=== PATIENT | female | born 1965 | race Caucasian/White ===

== ENCOUNTER 2019-05-27 12:35 | Outpatient (CLI) | payer OTHER, SELFPAY ==
--- NOTE | ~2019-05-27 | MM_ITS ---
EXAMINATION: MM scrn ricky implant BI w carlos HISTORY: Screening mammogram TECHNIQUE: Craniocaudal and mediolateral oblique 3-D tomosynthesis images with implant displacement a nd synthetic 2-D images were generated. Craniocaudal and mediolateral oblique views of the breasts wi thout implant displacement were obtained using full field digital mammography. CAD analysis was submi tted and interpreted. COMPARISON: 05/06/2017, 05/24/2014, 07/07/2009 BREAST PARENCHYMAL COMPOSITION: The breasts are heterogeneously dense, which may obscure small masses . FINDINGS: An intramammary lymph node is noted in the right breast. There is no evidence of suspicious mass, calcification, or architectural distortion to suggest malignancy in either breast. There has b een no suspicious interval change. IMPRESSION: 1. No mammographic evidence of malignancy. 2. Recommend routine screening mammography in one year. BI-RADS Category 2: Benign finding(s). Reviewed, dictated and finalized at location A.
== END 2019-05-27 12:36 | disposition home or self-care (01) ==
PROVIDERS: PCP Family Medicine; Visit Provider Student in an Organized Health Care Education/Training Program
DX: Z12.31 Encounter for screening mammogram for malignant neoplasm of breast (principal)
CPT/HCPCS: 77063; 77067

== ENCOUNTER 2019-08-04 16:44 | Outpatient (CLI) | payer OTHER, SELFPAY ==
--- NOTE | ~2019-08-04 | XR_ITS ---
EXAMINATION: XR tibia fibula RT 2V EXAM DATE: 08/04/2019 17:30 INDICATION: No known recent injury provided at this time. Pain of the right tibia/fibula. TECHNIQUE: Right tibia/fibula frontal and lateral projections obtained and reviewed. There is no mundo or study for comparison. FINDINGS: Right tibial and fibular shafts unremarkable. There are no acute fractures or dislocations identified. There is no subcutaneous gas. The soft tissue is unremarkable. There are no radiopaq ue foreign bodies. IMPRESSION: 1. Unremarkable right tibia/fibula exam. Reviewed, dictated and finalized at location A.
--- NOTE | ~2019-08-04 | XR_ITS ---
EXAMINATION: XR knee RT min 4V EXAM DATE: 08/04/2019 17:29 INDICATION: No known recent injury provided at this time. Pain of the right knee. TECHNIQUE: Right knee lateral, frontal AP, frontal PA tunnel, sunrise projections. Comparison is made to prior examination from 06/19/2017. Correlation was made with contralateral knee same date. FINDINGS: No evidence osteochondral defect or joint body in the right knee joint. There is minimal patellofemoral compartment primary osteoarthritis. No joint effusion. There are no acute fractures o r dislocations identified. There is no subcutaneous gas. The soft tissue is unremarkable. There a re no radiopaque foreign bodies. IMPRESSION: Minimal right patellofemoral compartment osteoarthritis. Reviewed, dictated and finalized at location A.
--- NOTE | ~2019-08-04 | XR_ITS ---
EXAMINATION: XR knee LT min 4V EXAM DATE: 08/04/2019 17:29 INDICATION: Left knee pain, no known recent injury. TECHNIQUE: Left knee lateral, frontal AP, frontal PA tunnel, sunrise projections. There is no prior study for comparison. FINDINGS: No evidence osteochondral defect or joint body in the left knee joint. Joint spaces are uniform, no bony productive change or effusion. There are no acute fractures or dislocations identifi ed. There is no subcutaneous gas. The soft tissue is unremarkable. There are no radiopaque foreig n bodies. IMPRESSION: 1. Unremarkable left knee exam. Reviewed, dictated and finalized at location A.
== END 2019-08-04 16:45 | disposition home or self-care (01) ==
PROVIDERS: PCP Family Medicine; Visit Provider Nurse Practitioner Family
DX: M25.562 Pain in left knee (principal); M25.561 Pain in right knee; M17.11 Unilateral primary osteoarthritis, right knee
CPT/HCPCS: 73564; 73590

== ENCOUNTER 2022-03-15 02:39 | Emergency (ER) | payer OTHER, SELFPAY ==
--- NOTE | ~2022-03-15 | XR_ITS ---
Left index finger Technique: PA, oblique, and lateral views were obtained. Clinical History: Pain Findings: No acute fracture or dislocation is seen. Osseous alignment is anatomic. Joint spaces are p reserved. Soft tissues are unremarkable. Impression: Unremarkable exam. Reviewed, dictated and finalized at location M. EXOLOGIST Impression: Unremarkable exam.
[2022-03-15 02:41] VITALS: BP 142/90; PULSE 88; RESP 18; TEMP 36.1; O2SAT 96
[2022-03-15 03:16] VITALS: O2SAT 97
[2022-03-15 03:29] VITALS: BP 131/75; PULSE 74; RESP 16; O2SAT 97
--- NOTE | 2022-03-15 04:25 | ED.UPPEXIN ---
HPI - Extremity Injury (Upper) General Chief Complaint: Extremity Injury, Upper Stated Complaint: finger pain Time Seen by Provider: 03/15/22 02:59 History of Present Illness HPI narrative: Patient is a 57-year-old female who presents ER with left second digit pain. 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 She has been using ice warmth without improvement. No numbness or tingling. Does not believe that she smashed it. No redness/fever. Related Data Home Medications Medication Instructions Recorded Confirmed No Home Medications 12/28/18 12/28/18 Allergies Allergy/AdvReac Type Severity Reaction Status Date / Time No Known Allergies Allergy Verified 12/28/18 01:37 AUTOMATION TECH Review of Systems Musculoskeletal: Musculoskeletal: Denies arthralgias and Denies joint swelling Comments: Left second digit pain Integumentary/Breasts: Skin/Breast: Denies erythema and Denies rash Neurologic: Denies focal weakness and Denies numbness PMFSH Past Medical History Medical History (Updated 03/15/22 @ 04:26 by Meir Jenkins MD) Anxiety Depression GERD (gastroesophageal reflux disease) Herpes Insomnia Seizures UTI (urinary tract infection) Family History Family History Mother Hypertension Other Family history of malignant neoplasm of breast Social History Social History Smoking status: Never smoker Alcohol intake: current Substance use: never Gender identity (if verbalized by the patient): Female Exam Narrative: GENERAL: Well-appearing, well-nourished, and in no acute distress. HEAD: Normocephalic, atraumatic. EXTREMITIES: Normal range of motion. No edema. Mild edema over the proximal phalanx of the left second digit. Mild tenderness over the dorsal aspect of the finger with flexion. No evidence of cellulitis. No tenderness over the flexor tendon sheath. SKIN: Warm, dry, no rash. NEURO: Alert and oriented x3. PSYCH: Normal mood and affect. Course Course Emergency Course: Patient informed of results. Discharge home. Finger splinted. Exam not consistent with cellulitis/fracture/flexor tenosynovitis. Vital Signs Vital signs: Vital Signs Temperature 97.0 F L 03/15/22 02:41 Pulse Rate 88 03/15/22 02:41 Respiratory Rate 18 03/15/22 02:41 Blood Pressure 142/90 H 03/15/22 02:41 Pulse Oximetry 96 03/15/22 02:41 Oxygen Delivery Room Air 03/15/22 02:41 Temperature 97.0 F L 03/15/22 02:41 Pulse Rate 74 03/15/22 03:29 Respiratory Rate 16 03/15/22 03:29 Blood Pressure 131/75 03/15/22 03:29 Pulse Oximetry 97 03/15/22 03:29 Oxygen Delivery Room Air 03/15/22 02:41 Procedures Orthopedic Splinting/Casting Injury #1: Splinting/Casting Date: 03/15/22 Splinting/Casting Time: 04:25 Side: left Upper Extremity Immobilizer: finger (other) (2nd) Pre-Formed: metal foam finger splint Pre-Procedure Neuro Vascular Exam: normal Post-Procedure Neuro Vascular Exam: normal MDM - Extremity Injury (Upper) Imaging Data My impression: X-ray left second digit: No fracture. Discharge Plan Discharge Clinical Impression: Finger sprain Patient Disposition: Home, Self-Care Condition: Stable Instructions: Finger Sprain (ED) Additional Instructions: Return the ER if your finger is red and hot, you have fever over 100.4 ?F, you have additional concerns. Take ibuprofen as needed for pain. Wear your splint as needed for the next week. Prescriptions: No Action No Home Medications Follow-up/Referrals: Nir Gayle MD [Primary Care Provider] - 1 Week
[2022-03-15 04:38] VITALS: BP 125/80; PULSE 52; RESP 16; TEMP 36.3; O2SAT 100
== END 2022-03-15 04:39 | disposition home or self-care (01) ==
PROVIDERS: Emergency Provider Emergency Medicine; PCP Family Medicine
DX: S63.611A Unspecified sprain of left index finger, initial encounter (principal); K21.9 Gastro-esophageal reflux disease without esophagitis; Z87.440 Personal history of urinary (tract) infections; X58.XXXA Exposure to other specified factors, initial encounter
CPT/HCPCS: 29130; 73140; 99283

== ENCOUNTER 2023-03-07 16:43 | Outpatient (CLI) | payer OTHER, SELFPAY ==
--- NOTE | ~2023-03-07 | MM_ITS ---
EXAMINATION: MM screening [facility] BI w carlos HISTORY: Screening mammogram TECHNIQUE: Craniocaudal and mediolateral oblique 3-D tomosynthesis images were obtained and synthetic 2-D images were generated. CAD analysis was submitted and interpreted. COMPARISON: 05/27/2019, 05/06/2017, 05/24/2014, 07/07/2009 BREAST PARENCHYMAL COMPOSITION: There are scattered areas of fibroglandular density. FINDINGS: An intramammary lymph node is again noted in the right breast. No suspicious mass, calcific ation, or architectural distortion are identified in either breast to suggest malignancy. There has b een no suspicious interval change. IMPRESSION: 1. No mammographic evidence of malignancy. 2. Recommend routine screening mammography in one year. BI-RADS Category 2: Benign finding(s). Reviewed, dictated and finalized at location A. [employer]
== END 2023-03-07 16:44 | disposition home or self-care (01) ==
PROVIDERS: PCP Family Medicine; Visit Provider Obstetrics & Gynecology
DX: Z12.31 Encounter for screening mammogram for malignant neoplasm of breast (principal)
CPT/HCPCS: 77063; 77067

== ENCOUNTER 2023-09-18 00:47 | Emergency (ER) | payer OTHER, SELFPAY ==
--- NOTE | ~2023-09-18 | XR_ITS ---
EXAMINATION: XR knee RT min 4V DATE: 09/18/2023 02:15 INDICATION: Right knee pain post injury TECHNIQUE: Anteroposterior, 2 oblique and crosstable lateral views of the right knee were obtained COMPARISON: None. FINDINGS: Alignment is normal. No fracture. Joint spaces appear normal on nonweightbearing imaging. No joint e ffusion/layering lipohemarthrosis. Soft tissues are unremarkable. IMPRESSION: 1. Negative right knee radiographs. Reviewed, dictated and finalized at location A.
--- NOTE | ~2023-09-18 | XR_ITS ---
EXAMINATION: XR shoulder RT min 2V DATE: 09/18/2023 02:15 INDICATION: Right shoulder pain post injury TECHNIQUE: AP internally and externally rotated, AP oblique externally rotated and transscapular Y vi ews of the right shoulder were obtained. COMPARISON: None FINDINGS: Normal alignment. No fracture. Glenohumeral joint is normal. Acromioclavicular joint is normal. The prior globular calcifications along the greater tuberosity likely related to rotator cuff calcific te ndinitis have nearly entirely resolved. Soft tissues are otherwise unremarkable. Visualized portion o f lungs are clear. IMPRESSION: No acute osseous abnormality. Reviewed, dictated and finalized at location A.
[2023-09-18 00:48] VITALS: BP 155/80; PULSE 90; RESP 16; TEMP 36.4; O2SAT 98
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
[2023-09-18] MEDS: methocarbamoL 750 MG TABLET PO (02:56)
[2023-09-18] MEDS: ACETAMINOPHEN 500 MG TABLET 1000 MG PO (02:56)
[2023-09-18 03:08] VITALS: BP 140/92; PULSE 94; RESP 16; O2SAT 100
== END 2023-09-18 03:09 | disposition home or self-care (01) ==
PROVIDERS: Emergency Provider Emergency Medicine; PCP Family Medicine
DX: M25.511 Pain in right shoulder (principal); G89.29 Other chronic pain; K21.9 Gastro-esophageal reflux disease without esophagitis; Z87.440 Personal history of urinary (tract) infections
CPT/HCPCS: 73030; 73564; 99284; A9270

== ENCOUNTER 2023-10-07 10:42 | Outpatient (CLI) | payer OTHER, SELFPAY ==
--- NOTE | ~2023-10-07 | DEXA_ITS ---
Bone Density Report Name: HUSAM PAN Age: 58 Sex: Female Ethnicity: White Date of : 1965 Indication: postmenopausal; screening for osteoporosis; parental hip fracture; inflammatory bowel disease; Referring Provider: PARMJIT, ANGEL LUIS Jack Study: Bone densitometry was performed. Exam Date: October 07, 2023 Accession number: [id number] Bone Density: Region BMD T-score Z-score Classification AP Spine(L1-L4) 0.997 -0.5 0.9 Normal Femoral Neck (Left) 0.635 -1.9 -0.7 Osteopenia Total Hip (Left) 0.830 -0.9 0.0 Normal Femoral Neck (Right) 0.638 -1.9 -0.6 Osteopenia Total Hip (Right) 0.832 -0.9 0.0 Normal Total Hip Mean 0.831 -0.9 0.0 Normal World Health Organization criteria for BMD impression classify patients as: Normal (T-score at or above -1.0), Osteopenia (T-score between -1.0 and -2.5), or Osteoporosis (T-score at or below -2.5). 10-year Fracture Risk(1): Major Osteoporotic Fracture 16% Hip Fracture 1.1% Reported Risk Factors: [place] (), Neck BMD=0.635, BMI=21.5, parental fracture (1) FRAX(R) Version 3.08. Fracture probability calculated for an untreated patient. Fracture probability may be lower if the patient has received treatment. Previous Exams: Region Exam Age BMD T-score BMD Change BMD Change Date g/cm2 vs Baseline vs Previous AP Spine (L1-L4) 10/07/2023 58 0.997 -0.5 -0.007 (-0.7%) -0.007 (-0.7%) 10/07/2023 58 1.004 -0.4 *Denotes significance at 95% confidence level, LSC for AP Spine = 0.022 g/cm2 Clinical Information Provided by Patient: Parent has had a hip fracture Has used the following medications: Vitamin D Has the following medical conditions: Inflammatory bowel diseases Patient maximum height was 66.0 Drinks caffeinated beverages Onset of menses at age 13 Number of children 1 Impression: The patient has low bone mass, based on the Left Femoral Neck T-score. The patient has an estimated ten-year risk of hip fracture of 1.1% and an estimated ten-year risk of major fracture of 16%, based on the WHO FRAX algorithm. The patient has risk factors, including: parental hip fracture. No significant bone loss was observed. Discussion: BONE DENSITY IS LOW AT ONE OR MORE SKELETAL SITES. This patient's lowest T-score is low at one or more skeletal sites. It meets the World Health Organization's (WHO) criteria for ?low bone mass? (T-score between -1.0 and -2.5). The patient's 10-year risk of fracture as calculated by FRAX is less than the threshold where pharmacological ther
== END 2023-10-07 10:43 | disposition home or self-care (01) ==
PROVIDERS: PCP Family Medicine; Visit Provider Registered Nurse
DX: M85.89 Other specified disorders of bone density and structure, multiple sites (principal); N95.0 Postmenopausal bleeding; Z13.820 Encounter for screening for osteoporosis
CPT/HCPCS: 77080

== ENCOUNTER 2023-11-18 11:54 | Outpatient (CLI) | payer OTHER, SELFPAY ==
--- NOTE | 2023-11-18 16:05 | P.PCNPFT_ITS ---
PFT Procedure Performed PFT Procedure Performed Spirometry with Pre/Post Bronchodilator Plethysmography (Lung Vol) Diffusing Cap (DLCO) Flow Vol Loop PFT Interpretation This is a pulmonary function test with pre and post-bronchodilator spirometry, plethysmography and diffusing capacity. The test was performed and results interpreted in accordance with the 2019 and 2005 ATS/ERS Task Force guidelines respectively using the Global Lung Function Initiative-2012 reference equations. Patient demonstrated good effort and cooperation. Reproducibility criteria were met. The quality of the pre bronchodilator spirometry maneuver was Grade B and post bronchodilator spirometry maneuver was Grade B. Of note, the patient had difficulty with exhalation requirements of the flow volume loops. Findings: Spirometry: The contour the inspiratory and expiratory flow tracing are normal. The pre bronchodilator FVC is 3.54 L, 103% predicted. The pre bronchodilator FEV1 is 2.99 L, 111% predicted. The pre bronchodilator FEV1: FVC ratio was 84%. The post bronchodilator FVC is 3.19 L, representing a 10% increase. The post bronchodilator FEV1 is 2.38 L, representing a 5% decrease. The post bronchodilator FEV1: FVC ratio is 89%. Plethysmography: The total lung capacity is 4.64 L, 86% predicted. The func tional residual capacity is 2.59 L, 85% predicted. The residual volume is 1.10 L, 53% predicted. Diffusing capacity: The diffusing capacity unadjusted for hemoglobin and carboxyhemoglobin is 19.1, 85% predicted. The diffusing capacity adjusted for alveolar volume is 4.00, 92% predicted. Impression: The spirometry is normal without evidence of an obstructive abnormality. There is no significant improvement after inhaling a single dose of albuterol. The total lung capacity and functional residual capacity are normal with a decreased residual volume. This is an abnormal but nonspecific lung volume pattern. The diffusing capacity is normal. There are no prior studies for comparison
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
== END 2023-11-18 11:55 | disposition home or self-care (01) ==
LOC: ANHPFT 11:57
PROVIDERS: PCP Family Medicine; Visit Provider Physician Assistant
DX: J45.909 Unspecified asthma, uncomplicated (principal)
CPT/HCPCS: 94060; 94726; 94729

== ENCOUNTER 2023-12-18 16:12 | Outpatient (CLI) | payer OTHER, SELFPAY ==
--- NOTE | ~2023-12-18 | CT_ITS ---
CT diagnostic chest wo con Ordering provider: Mandi Douglas PA-C History: 58 years Female with . R05.9 - Cough, unspecified . Comparison: None. Technique: CT chest without IV contrast. Radiation reduction technique utilized.The dose-length product was 128.42 mGy-cm. FINDINGS: Bilateral breast implants. VISUALIZED THORACIC INLET: Normal. MEDIASTINUM: Aorta/coronary arteries: Mild atheromatous disease. Heart/other: The heart is not enlarged. Lymph nodes: No mediastinal or hilar adenopathy. LUNGS: No pulmonary nodules or masses. No infiltrates or effusions. No pneumothorax. Dependent atelec tatic changes in the right lung base posteriorly. Follow-up advised. VISUALIZED UPPER ABDOMEN: Multiple hepatic Small hypodensities adjacent to each other most likely sma ll cysts. Ultrasound confirmation advised. Otherwise, the visualized upper abdomen is normal. MUSCULOSKELETAL: Soft tissues: The superficial soft tissues are normal. Bones: Age appropriate degenerative changes of the spine. IMPRESSION: 1. No definite acute cardiopulmonary pathology. Minimal dependent atelectatic changes in the right l nikita base. Early infiltration cannot be excluded. Follow-up advised. 2. Multiple small hepatic hypodensities which are adjacent to each other most likely cysts. Ultrasou nd evaluation advised. Reviewed, dictated and finalized at location A. IMPRESSION: 1. No definite acute cardiopulmonary pathology. Minimal dependent atelectatic changes in the right lung base. Early infiltration cannot be excluded. Follow-u p advised. 2. Multiple small hepatic hypodensities which are adjacent to each other most likely cysts. Ultrasound evaluation advised.
== END 2023-12-18 16:13 | disposition home or self-care (01) ==
LOC: ANHIMG 16:14
PROVIDERS: PCP Family Medicine; Visit Provider Physician Assistant
DX: J45.909 Unspecified asthma, uncomplicated (principal)
CPT/HCPCS: 71250

== ENCOUNTER 2024-02-18 13:25 | Outpatient (CLI) | payer OTHER, SELFPAY ==
--- NOTE | 2024-02-18 14:00 | ECHO_ITS ---
Patient Info Name: Mikey Bass Age: 59 years : 1965 Gender: Female Ht: 66 in Wt: 142 lbs BSA: 1.74 m2 HR: 66 bpm BP: 140 / 86 mmHg Technical Quality: Fair Exam Date: 02/18/2024 1:41 PM Exam Location: Echo Lab Patient Status: Outpatient Admit Date: 02/18/2024 Staff Ordering Physician: Mandi Douglas PA-C Pediatric Social Worker: Yulissa Ly RDCS Attending Provider: Mandi Douglas PA-C Exam Type: CA echo doppler color flow Study Info Indications - COUGH Complete two-dimensional, color flow and Doppler transthoracic echocardiogram is performed. Summary 1. Complete two-dimensional, color flow and Doppler transthoracic echocardiogram is performed. 2. Left ventricular chamber dimension is normal. 3. Left ventricular systolic function is normal, estimated at 60-65%. 4. The left ventricular diastolic function is normal. 5. E/e' 6 is not elevated. 6. There is trace mitral valve regurgitation. Left Ventricle E/e' 6 is not elevated. Left ventricular chamber dimension is normal. Left ventricular systolic function is normal, estimated at 60-65%. The left ventricular diastolic function is normal. Right Ventricle Right ventricular systolic function is normal and with normal TAPSE 2.4 cm. Right ventricular chamber dimension is normal. Left Atria Left atrial chamber dimension is normal. Right Atria Right atrial chamber dimension is normal. Aortic Valve The aortic valve is trileaflet. There is no aortic valve stenosis. There is no aortic valve regurgitation. Pulmonic Valve There is no pulmonic regurgitation. Mitral Valve There is no mitral valve stenosis. There is trace mitral valve regurgitation. Tricuspid Valve There is no tricuspid valve regurgitation. Pericardium/Pleural There is no pericardial effusion. Inferior Vena Cava Normal inferior vena cava with >50% collapse upon inspiration consistent with normal right atrial pressure, 5 mmHg. Aorta The aortic root size at the sinus of Valsalva is normal. Left Ventricular Outflow Tract Name Value Normal LVOT 2D LVOT Diameter 1.9 cm LVOT Doppler LVOT Peak Gradient 4 mmHg LVOT Mean Gradient 2 mmHg LVOT VTI 23 cm LVOT VTI/AV VTI Ratio 0.9 LVOT Stroke Volume 61 ml LVOT CO 3.4 l/min LVOT CI 2.0 l/min/m2 Pulmonic Valve Name Value Normal RVOT Doppler RVOT Peak Gradient 2 mmHg PV Doppler PV Peak Gradient 2 mmHg Mitral Valve Name Value Normal MV Doppler MV Peak Gradient 2 mmHg MV Mean Gradient 1 mmHg MV Decel [place] 420 cm/s2 MV PHT 44 ms MV Area (PHT) 5.0 cm2 4.0-5.0 MV Area (Cont Eq VTI) 2.7 cm2 MV Diastolic Function MV E Peak Velocity 63 cm/s MV A Peak Velocity 59 cm/s MV E/A 1.1 MV Decel Time 151 ms MV Annular TDI MV E/e' (Septal) 7.0 <=8.0 MV E/e' (Lateral) 5.7 <=8.0 MV E/e' (Average) 6.4 Tricuspid Valve Name Value Normal Estimated PAP/RSVP RA Pressure 5 mmHg <=5 Aorta Name Value Normal Ascending Aorta Ao Root Diameter (MM) 2.6 cm Ao Root Diam Index (MM) 1.5 cm/m2 Aortic Valve Name Value Normal AV Doppler AV Peak Velocity 125 cm/s AV Peak Gradient 6 mmHg AV Mean Gradient 4 mmHg AV VTI 26 cm AV Area (Cont Eq VTI) 2.3 cm2 >=3.0 AV Area (Cont Eq Niranjan) 2.6 cm2 AV Regurgitation 2D LVOT Area 2.7 cm2 Ventricles Name Value Normal LV Dimensions 2D/MM IVS Diastolic Thickness (2D) 1.1 cm 0.6-1.0 LVID Diastole (2D) 4.0 cm 3.8-5.2 LVIW Diastolic Thickness (2D) 1.0 cm 0.6-0.9 LVID Systole (2D) 2.6 cm 2.2-3.5 LVOT Diameter 1.9 cm LV Mass (2D Cubed) 134.90 g 67.00-162.00 LV Mass Index (2D Cubed) 78 g/m2 43-95 Relative Wall Thickness (2D) 0.49 LV Fractional Shortening/Ejection Fraction 2D/MM LV Fractional Shortening (2D) 36 % 27-45 LV EF (2D Teicholz) 66 % 54-74 LV Diastolic Volume (4C MOD) 60 ml LV EF (4C MOD) 50 % LV Diastolic Volume (2C MOD) 57 ml LV EF (2C MOD) 62 % LV Diastolic Volume (BP MOD) 60 ml 46-106 LV Diastolic Volume Index (BP MOD) 34 ml/m2 29-61 LV Systolic Volume (BP MOD) 26 ml 14-42 LV Systolic Volume Index (BP MOD) 15 ml/m2 8-24 LV EF (BP MOD) 56 % 54-74 LV Diastolic Length (4C) 7.2 cm LV Systolic Length (4C) 6.4 cm LV Stroke Volume (4C MOD) 30 ml Atria Name Value Normal LA Dimensions LA Dimension (MM) 3.0 cm 2.7-3.8 LA Volume (4C A-L) 31 ml LA Volume (BP A-L) 40 ml RA Dimensions RA Area (4C) 11.2 cm2 <=18.0 Report Signatures
[2024-02-18 15:01] LABS: Alanine Aminotransferase 13 U/L (6-35); Albumin Level 4.5 g/dL (3.5-5.1); Alkaline Phosphatase 82 U/L (38-126); Anion Gap 1 mmol/L (4-12); Aspartate Amino Transferase 26 U/L (14-36); Bilirubin,Total 1.6 mg/dL (0.2-1.3); Blood Urea Nitrogen 12 mg/dL (7-17); Calcium 9.4 mg/dL (8.4-10.2); Carbon Dioxide 33 mmol/L (22-30); Chloride 104 mmol/L (98-107); Cholesterol 262 mg/dL (0-200); Estimated Glomerular Filt Rate > 60; Glucose 105 mg/dL (65-110); HDL Direct 58 mg/dL; Potassium 4.3 mmol/L (3.4-5.0); Sodium 138 mmol/L (137-145); Triglycerides 202 mg/dL (<150)
[2024-02-18 15:11] LABS: LDL Cholesterol Direct 143 mg/dL
[2024-02-18 15:18] LABS: Hemoglobin A1C 5.7 % (<5.7)
== END 2024-02-18 13:26 | disposition home or self-care (01) ==
PROVIDERS: PCP Family Medicine; Visit Provider Physician Assistant
DX: R06.09 Other forms of dyspnea (principal); R05.9 Cough, unspecified; R73.01 Impaired fasting glucose; Z11.59 Encounter for screening for other viral diseases; E78.5 Hyperlipidemia, unspecified
CPT/HCPCS: 36415; 80053; 80061; 83036; 93306

== ENCOUNTER 2024-04-17 15:30 | Outpatient (CLI) | payer OTHER, SELFPAY ==
--- NOTE | ~2024-04-17 | XR_ITS ---
EXAMINATION: XR chest 2V 04/17/2024 15:47 INDICATION: Atelectasis. Cough. PROCEDURE: 2 view chest COMPARISON: CT dated 12/18/2023 FINDINGS: The lungs are clear. The cardiomediastinal silhouette is within normal limits. There are no pleural effusions. There is no pneumothorax suspected. IMPRESSION: 1: NO ACUTE CARDIOPULMONARY DISEASE. Reviewed, dictated and finalized at location L. WORK ASSEMBLER
--- OUTSIDE RECORDS SUMMARY | 2024-04-17 15:34 | XMS_ITS | Encounter Summary ---
Author Organization [facility] Address [facility] [place] [address] Care Team Providers Care Fire Battalion Chief Name Role Phone Nir Gayle MD Primary Care Provider [phone] Osmany Montes NP Primary Care Provide r Renny Urbina MD Primary Care Provider [phone] Nir Gayle MD Primary Care Provider [phone] Encounter Details Date Type Department Care Team (Late st Contact Info) Description 07/20/2021 Prep for Procedure [facility] [address] [place] [address] Abdulkadir Damon, DPM [address] [place] [id number] Social History Tobacco Use Types Packs/Day Years Used Date Smoking Tobacco: Never Smokeless Tobacco: Never Alcohol Use Standard Drinks/Week Comments Not Currently 0 (1 standard drink = 0.6 oz pur e alcohol) AUDIT-C Answer Date Recorded Frequency of Alcohol Consumption 2-4 times a sat06/25/2018 Average Number of Drinks 1 or 2 019 Frequency of Binge Drinking Never 02/2018 PHQ-2 Answer Date Recorded PHQ-2 Score 2 01/31/2019 Education Answer Date Recorded What is the highest level of school you have completed or the highest degree you have received? Bachelor's degree (e.g., BA, AB, BS) 05/01/2018 Comments No Sex and Gender Information Value Date Recorded Sex Assigned at Female 05/01/2018 7:16 AM SECURITY SHIFT SUPERVISOR Legal Sex Female 4:36 PM CDT Gender Identity Female 05/01/2018 7:16 AM SECURITY SHIFT SUPERVISOR Sexual Orientation Straight 05/01/2018 7: 16 AM SECURITY SHIFT SUPERVISOR COVID-19 Exposure Response Date Recorded In the last 10 days, have yo u been in contact with someone who was confirmed or suspected to have Coronavirus/COVID-19? No / Unsure 07/22/2021 11:50 AM CDT documented as of this encounter Plan of Treatment Not on file documented as of this encounter Results * PRE-SURGICAL/PRE-PROCEDURE CORONAVIRUS (COVID 19) (07/22/2021 11:53 AM CDT) SPECIMEN SOURCE NASAL 11:51 AM CDT [facility] CORONAVIRUS SARS COV 2 PCR (RESP) NEGATIVE NEGATIVE 07/23/2021 10:39 AM CDT [facility] Comment: THE SARS-CoV-2 TEST HAS BEEN AUTHORIZED BY THE FDA UNDER AN EUA FOR USE BY AUTHORIZED LABORATORIES. PERFORMED BY NUCLEIC ACID AMPLIFICATION PCR FIRST TEST NO 07/22/2021 11:51 AM CDT [facility] EMPLOYED IN HEALTHCARE NO 07/22/2021 11:51 AM CDT [facility] SYMPTOMATIC DEFINED BY CDC NO 07/22/2021 11:51 AM CDT [facility] HOSPITALIZATION STATUS NO 07/22/2021 11:51 AM CDT [facility] PATIENT IN ICU NO 07/22/2021 11:51 AM CDT [facility] RESIDENT OF [facility] NO 07/22/2021 11:51 AM CDT [facility] NASAL STRUCTURE / Unknown 07/22/2021 11:53 AM CDT Abdulkadir Damon DPM MICROBIOLOGY - GENERAL ORDERABLE S Final Result [facility] (H) [facility] [address] [place] [address], [place] [phone] [facility] (D) [facility] [address] [place] [address], documented in this encounter Visit Diagnoses Diagnosis Pre-op testing- Primary Preoperative examination, unspecified documented in this encounter Additional Health Concerns Infection Onset Date Last Indicated Resolved Time COVID-19 Rule Out 07/22/2021 07/22/2021 07/23/2021 10:40 AM CDT COVID-19 Rule Out 12/21/2021 12/21/2021 12/21/2021 10:21 AM CDT COVID-19 Confirmed 12/21/2021 12/21/2021 12:32 AM SECURITY SHIFT SUPERVISOR documented as of this encounter Care Teams Fire Battalion Chief Relationship Specialty Start Date End Date Nir Gayle MD [address] [place] [address] PCP - General FAMILY PRACTICE 06/19/21 03/18/23 Osmany Montes NP [address] [place] [address] PCP - General NURSE PRACTITIONER ADULT HEALTH 03/19/23 09/12/23 [place] [address] [place] [address] PCP - General INTERNAL MEDICINE 09/13/23 10/29/23 Nir Gayle MD [address] [place] [address] PCP - General FAMILY PRACTICE 10/30/23 documented as of this encounter
--- OUTSIDE RECORDS SUMMARY | 2024-04-17 15:35 | XMS_ITS | Referral Summary ---
Author Organization [facility] Address [address] [facility] [place] [address] Care Team Providers Care Meat Molder Name Role Phone Nir Gayle MD Primary Care Provider Source Comments [facility],non-owned Affiliates and Associated Physician Practices is amultiple site organization consisting of ambulatory clinics and hospital sitesin [place], [place], [place] and [place]. This disclosure is being madepursuant to the Care Everywhere program and may not contain all information available regarding this patient. Last updated 17.[facility] Encounters Date Type Department Care Team Description 02/13/2024 Travel from Last 3 Months Allergies Active Allergy Reactions Criticality Noted Date Comments Dronabinol Diarrhea Low 05/01/2018 From intense inhalation Marijuana (Cannabis Sativa) Unknown,Diarrhea 05/01/2018 From intense inhalation From intense inhalation Paroxetine Unknown 03/24/2014 Sertraline Unknown 03/24/2014 SSRI reaction Medications * Be aware that medications may not be up to date on this document. Alwaysverify current medications with the patient. Medication Sig Dispensed Refills Start Date End Date Status ALPRAZolam (XANAX) 1 MG tablet Take 1 (one) tablet by mouth once daily as needed FOR ANXIETY 08/06/2019 Active vitamin D, ergocalciferol, (DRISDOL) 1.25 MG (56440 UT) capsule TAKE 1 CAPSULE BY MOUTH ONE TIME PER WEEK 07/21/2019 Active zolpidem CR (AMBIEN CR) 12.5 MG tablet Take 1 (one) tablet by mouth at bedtime 10/14/2020 Active nortriptyline (Pamelor) 25 MG capsule Take 1 (one) capsule by mouth 07/11/2023 Active ciprofloxacin (Cipro) 500 MG tablet Take 1 (one) tablet by mouth 2 times daily 06/26/2023 Active methocarbamol (Robaxin) 750 MG tablet Take 1 (one) tablet by mouth nightly as needed 09/18/2023 Active erythromycin (Romycin) 5 MG/GM ophthalmic ointment Apply thin ribbon to upper eyelid incisions once daily as needed. 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 Rosacea 05/24/2016 Uterine leiomyoma 02/01/2015 Herpes labialis 10/11/2014 Anxiety 12/24/2013 Depression 12/24/2013 Insomnia 12/24/2013 Social History Tobacco Use Types Packs/Day Years Used Date Smoking Tobacco: Never Smokeless Tobacco: Never Tobacco Cessation:Counseling Given: Not Answered Alcohol Use Standard Drinks/Week Comments Yes 0 (1 standard drink = 0.6 oz pur e alcohol) 1 per month Sex and Gender Information Value Date Recorded Sex Assigned at Not on file Gender Identity Not on file Sexual Orientation Not on file Last Filed Vital Signs Vital Sign Reading Time Taken Comments Blood Pressure 144/91 09/23/2023 9:55 AM CDT Pulse 54 09/23/2023 9:55 AM CDT Temperature 36.7 C (98 F) 09/23/2023 9:45 AM CDT Respiratory Rate 11 09/23/2023 9:55 AM CDT Oxygen Saturation 100% 09/23/2023 9:55 AM CDT Inhaled Oxygen Concentration - - Weight 60.6 kg (133 lb 9.6 oz) 09/23/2023 6:29 A M CDT Height 167.6 cm (5' 6 ) 09/23/2023 6:29 AM CDT Body Mass Index 21.56 09/23/2023 6:29 AM CDT Functional Status Functional Status Response Date of Assess ment Is person deaf or have serious hearing difficult y? No 01/06/2019 Is person blind or have serious difficulty seein g? No 01/06/2019 Does person have serious dif ficulty walking/climbing stairs? No 01/06/2019 Does person have difficulty dressing/bathing? No 01/06/2019 Does person have difficulty doing errands alone? No 01/06/2019 Cognitive Status Response Date of Assessm ent Does person have difficulty concentrating/remembering/making decisions? No 01/06/2019 Plan of Treatment Not on file Procedures Procedure Name Priority Date/Time Associated Diagnosis Comments LIPID PROFILE Routine 01/04/2019 5:35 AM OCEANOGRAPHY PROFESSOR from Last 3 Months or Most Recently Relevant to Health Maintenance Results * LIPID PROFILE (01/04/2019 5:35 AM OCEANOGRAPHY PROFESSOR) [facility] Cholesterol 173 <200 mg/dL 01/04/2019 6:20 AM [facility] Triglycerides 87 <150 mg/dL 01/04/2019 6:20 AM [facility] HDL Cholesterol 57 >40 mg/dL 9 6:20 AM [facility] Chol HDL Ratio 3.0 1.0 - 6.0 01/04/2019 6:20 AM [facility] LDL Calculated 99 65 - 130 mg/dL 01/04/2019 6:20 AM [facility] VLDL Calculated 17 10 - 40 mg/dL 01/04/2019 6:20 AM [facility] Blood BLOOD SPECIMEN / Unknown Lab Venipuncture / Unknown 01/04/2019 5:35 AM OCEANOGRAPHY PROFESSOR 01/04/2019 5:46 AM [facility] - 01/04/2019 6:20 AM [facility] Lipid Profile Comment: CHOLESTEROL LEVEL..................CLINICAL INTERPRETATION LESS THAN 200 MG/DL..............................DESIRABLE 200-239 MG/DL..............................BORDERLINE HIGH GREATER THAN 240 MG/DL................................HIGH LDL-CHOLESTEROL LEVEL..............CLINICAL INTERPRETATION LESS THAN 100 MG/DL................................OPTIMAL 100-129 MG/DL.................................NEAR OPTIMAL GREATER THAN 160 MG/DL...........................HIGH RISK HDL RISK LEVEL GREATER THEN 60 MG/DL............................DECREASED 40-60 MG/DL........................................AVERAGE LESS THAN 40 MG/DL...............................INCREASED TRIGLYCERIDE LEVEL..................CLINICAL INTERPRETATION LESS THAN 150 MG/DL...............................DESIRABLE 150-199 MG/DL...............................BORDERLINE HIGH 200-499 MG/DL..........................................HIGH GREATER THAN 500..................................VERY HIGH THE NATIONAL CHOLESTEROL EDUCATION PROGRAM HAS SET THE ABOVE GUIDELINES (REFERANCE VALUES) FOR CHOLESTEROL AND HDL. RISK ASSOCIATED WITH CHOLESTEROL/HDL RATIOS RISK....................MALE RATIO.............FEMALE RATIO 1/2 AVERAGE.................<3.4.......................<3.3 LOW RISK.................... 4.0 ...................... 3.8 AVERAGE..................... 5.0 ...................... 4.5 2X AVERAGE.................. 9.5 ...................... 7.0 3X AVERAGE...................>23........................>11 Victor Manuel Galan MD LAB - CHEMISTRY [facility] Organization Address City/State/[facility] Co de Phone Number [facility] [address] from Last 3 Months or Most Recently Relevant to Health Maintenance Advance Directives * Full Code (Latest Code Status on File) Date Activated Date Inactivated Comments 01/01/2019 8:43 PM 01/06/2019 2:09 PM Care Teams Meat Molder Relationship Specialty Start Date End Date Nir Gayle MD [address] [place] [address] PCP - General 08/19/19
--- OUTSIDE RECORDS SUMMARY | 2024-04-17 15:35 | XMS_ITS | Patient Health Summary ---
Author Organization [facility] Address [address] [facility] [address] Care Team Providers Care Quarry Supervisor Name Role Phone Nir Gayle MD Primary Care Provider Note from [facility],non-owned Affiliates and Associated Physician Practices is amultiple site organization consisting of ambulatory clinics and hospital sitesin [place], [place], [place] and [place]. This disclosure is being madepursuant to the Care Everywhere program and may not contain all information available regarding this patient. Last updated 17.[facility] Allergies * Dronabinol(Diarrhea) -Low Criticality * Marijuana (Cannabis Sativa)(Unknown,Diarrhea) * Paroxetine(Unknown) * Sertraline(Unknown) Medications * Be aware that medications may not be up to date on this document. Alwaysverify current medications with the patient. * ALPRAZolam (XANAX) 1 MG tablet(Started 08/06/2019) Take 1 (one) tablet by mouth once daily as needed FOR ANXIETY * vitamin D, ergocalciferol, (DRISDOL) 1.25 MG (36143 UT) capsule(Started 07/21/2019) TAKE 1 CAPSULE BY MOUTH ONE TIME PER WEEK * zolpidem CR (AMBIEN CR) 12.5 MG tablet(Started 10/14/2020) Take 1 (one) tablet by mouth at bedtime * nortriptyline (Pamelor) 25 MG capsule(Started 07/11/2023) Take 1 (one) capsule by mouth * ciprofloxacin (Cipro) 500 MG tablet(Started 06/26/2023) Take 1 (one) tablet by mouth 2 times daily * methocarbamol (Robaxin) 750 MG tablet(Started 09/18/2023) Take 1 (one) tablet by mouth nightly as needed * erythromycin (Romycin) 5 MG/GM ophthalmic ointment(Started 10/01/2023) Apply thin ribbon to upper eyelid incisions once daily as needed. 1 refill by 09/30/2024 Active Problems Problem Noted Date Diagnosed Date [...] Mass Index 21.56 09/23/2023 6:29 AM CDT Procedures * AK FIX LID PTOSIS,LEVATR RESEC,REFRIGERATOR ASSEMBLER(Performed 09/23/2023) Performed for Ptosis of both eyelids, Dermatochalasis of both upper eyelids * CHAVEZ AUTO VISUAL FIELD EXTENDED(Performed 08/30/2022) Performed for Brow ptosis, bilateral * XR SHOULDER RIGHT 2VW OR MORE(Performed 08/21/2019) Performed for Right shoulder pain, unspecified chronicity * HEMOGLOBIN A1C(Performed 01/04/2019) * LIPID PROFILE(Performed 01/04/2019) Results * CHAVEZ AUTO VISUAL FIELD EXTENDED (08/30/2022 9:46 AM CDT) Anatomical Region Laterality Modality Head External-Camera Photography Narrative 09/01/2022 8:14 AM CDT KINETIC Rojas visual field Reversible superior visual field deficit Right: 14 degrees to 26 degrees Left: 21 degrees to 26 degrees Ange King MD OPHTHALMOLOGY JOSHUA ED ORD W PACS * XR SHOULDER RIGHT 2VW OR MORE (08/21/2019 12:08 PM CDT) Anatomical Region Laterality Modality Upper Extremity Radiographic Poonam ging 08/21/2019 12:0 9 PM CDT Impressions 08/21/2019 1:09 PM CDT Impression: No evidence of fracture or arthritis. Report drafted by Brandan Barnard M.D. (resident) Dr. GIANNA Barakat M.D. have personally reviewed and interpreted this examination/study. This report was electronically signed by GIANNA HUNT M.D. on 08/21/2019 1:09 PM . Narrative 08/21/2019 1:09 PM CDT Exam: Right shoulder Radiographs, 3 Views History: M25.511: Right shoulder pain, unspecified chronicity Comparison: None. Findings: No fracture or dislocation is present. The joint spaces are normal. Bone density is normal. The soft tissues are normal. Procedure Note Gianna Hunt MD - 08/21/2019 Exam: Right shoulder Radiographs, 3 Views History: M25.511: Right shoulder pain, unspecified chronicity Comparison: None. Findings: No fracture or dislocation is present. The joint spaces are normal. Bone density is normal. The soft tissues are normal. Impression: No evidence of fracture or arthritis. Report drafted by Brandan Barnard M.D. (resident) Dr. GIANNA Barakat M.D. have personally reviewed and interpreted this examination/study. This report was electronically signed by GIANNA HUNT M.D. on 08/21/2019 1:09 PM . Silvia Salgado PA-C DIAGNOSTIC IMAGING O RDERABLES * HEMOGLOBIN A1C (01/04/2019 5:35 AM [facility]) Hemoglobin A1c 5.3 4.2 - 5.6 % 01/04/2019 6:[address] [facility] Estimated Average Glucose 105 mg/dL 01/04/2019 6:[address] [facility] Blood BLOOD SPECIMEN / Unknown Lab Venipuncture / Unknown 01/04/2019 5:35 AM BAG BUNDLER 01/04/2019 5:46 AM [facility] Narrative [facility] - 01/04/2019 6:05 AM [facility] The following cutoff levels are recommended by [place] [employer]. A1c > 6.5% : considered as diabetes if two separate tests >6.5% or in an appropriate clinical setting. A1c 5.7% - 6.4% : considered as prediabetes (suggest increased risk for diabetes and cardiovascular disease) Control target level: Should be individualized. < 7 for general (non-) , < 8% less stringent goal, < 6.5 more stringent goal. Hemoglobin A1c measurements are used as an aid in the diagnosis of diabetic mellitus, as an aid to identify patients who may be at the risk for developing diabetic mellitus, and for the monitoring long-term blood glucose control in individuals with diabetes mellitus. This test should not replace glucose testing for patients with Type 1 diabetes, pediatric patients, or women. Falsely low HbA1c results may be observed in patients with clinical conditions that shorten erythrocyte life span or decrease mean erythrocyte age such as the presence of unstable hemoglobin variants, elevated hemoglobin F level or other causes of hemolytic anemia . HbA1c may not accurately reflect glycemic control when clinical conditions that affect erythrocyte survival are present. Severe Iron deficiency anemia may yield falsely high results. Hemoglobin A1c assay should not be used to diagnose or monitor diabetes in patients with malignancy, recent blood transfusion, chronic kidney or liver disease. This method may yield falsely low results when hemoglobin (HbF) exceeds 5% in the specimen. Victor Manuel Galan MD LAB - CHEMISTRY [facility] LE[facility] Organization Address City/State/[facility] Co de Phone Number [facility] [address] [place] [address] * LIPID PROFILE (01/04/2019 5:35 AM [facility]) Cholesterol 173 <200 mg/dL 01/04/2019 6:[address] [facility] Triglycerides 87 <150 mg/dL 01/04/2019 6:[address] [facility] HDL Cholesterol 57 >40 mg/dL 9 6:[address] [facility] Chol HDL Ratio 3.0 1.0 - 6.0 01/04/2019 6:[address] [facility] LDL Calculated 99 65 - 130 mg/dL 01/04/2019 6:[address] [facility] VLDL Calculated 17 10 - 40 mg/dL 01/04/2019 6:[address] [facility] Blood BLOOD SPECIMEN / Unknown Lab Venipuncture / Unknown 01/04/2019 5:35 AM BAG BUNDLER 01/04/2019 5:46 AM [facility] Narrative [facility] - 01/04/2019 6:20 AM [facility] Lipid Profile Comment: CHOLESTEROL LEVEL..................CLINICAL [...] Galan MD LAB - CHEMISTRY [facility]ONG Performing Organization Address City/State/[facility] Co de Phone Number [facility] [address] Care Teams Quarry Supervisor Relationship Specialty Start Date End Date Nir Gayle MD [address] [place] [address] PCP - General 08/19/19
--- OUTSIDE RECORDS SUMMARY | 2024-04-17 15:35 | XMS_ITS | Referral Summary ---
Author Organization [facility] Address [address] [place] [id number] Care Team Providers Care Special Education Paraprofessional Name Role Phone Nir Gayle MD Primary Care Provider Allergies Active Allergy Reactions Criticality Noted Date Comments Dronabinol Diarrhea Low 05/01/2018 From intense inhalation House Dust Mite Itching,Rash Medium 01/07/2024 Marijuana (Cannabis) Diarrhea Low 05/01/2018 From intense inhalation Paroxetine Unknown 03/24/2014 Sertraline Other (See comments) Low 03/24/2014 SSRI reaction Medications ALPRAZolam (XANAX) 1 mg tablet Take 1 tablet (1 mg total) by mouth daily as needed 9 Active ergocalciferol (VITAMIN D) 50,000 unit capsule TAKE 1 CAPSULE BY MOUTH ONE TIME PER WEEK 0 Active zolpidem CR (AMBIEN CR) 12.5 mg CR tablet Take 1 tablet (12.5 mg total) by mouth nightly 1 Active escitalopram (LEXAPRO) 10 mg tablet 1 Active albuterol HFA (PROVENTIL HFA,VENTOLIN HFA,PROAIR HFA) 90 mcg/actuation inhaler INHALE 1-2 PUFFS BY MOUTH EVERY 4-6 HOURS NEEDED FOR SHORTNESS OF BREATH/WHEEZIN G 4 Active methocarbamoL (ROBAXIN) 750 mg tablet Take 1 tablet (750 mg total) by mouth nightly as needed 4 Active nortriptyline (PAMELOR) 25 mg capsule Take 1 capsule (25 mg total) by mouth 3 (three) times a day Active Active Problems Problem Noted Date Diagnosed Date Chronic pain of both knees 11/17/2020 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 Acute psychosis 01/01/2019 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 Rosacea 05/24/2016 Uterine leiomyoma 02/01/2015 Herpes labialis 10/11/2014 Anxiety 12/24/2013 Depression 12/24/2013 Insomnia 12/24/2013 Social History Tobacco Use Types Packs/Day Years Used Date Smoking Tobacco: Never Cigarettes Smokeless Tobacco: Never Tobacco Cessation:Counseling Given: Not Answered Comments Unknown Sex and Gender Information Value Date Recorded Sex Assigned at Not on file Legal Sex Female 1:36 AM MAINTENANCE CONSTRUCTION HELPER Gender Identity Not on file Sexual Orientation Not on file Last Filed Vital Signs Vital Sign Reading Time Taken Comments Blood Pressure - - Pulse - - Temperature - - Respiratory Rate - - Oxygen Saturation - - Inhaled Oxygen Concentration - - Weight 62.9 kg (138 lb 9.6 oz) 11/16/2020 11:03 AM CDT Height 167.6 cm (5' 6 ) 11/08/2020 9:24 AM CDT Body Mass Index 22.37 11/08/2020 9:24 AM CDT Plan of Treatment Not on file Insurance [facility] Care Teams Special Education Paraprofessional Relationship Specialty Start Date End Date Nir Gayle MD PCP - General Family Medicine 10/18/20
--- OUTSIDE RECORDS SUMMARY | 2024-04-17 15:35 | XMS_ITS | Clinical Summary ---
Author Organization [facility] Address [facility] [place] [address] Care Team Providers Care Production Engineer Name Role Phone Nir Gayle MD Primary Care Provider [phone] Allergies Active Allergy Reactions Criticality Noted Date Comments Dronabinol Diarrhea Low 05/01/2018 From intense inhalation Marijuana (Cannabis Sativa) Diarrhea Low 05/01/2018 From intense inhalation Paroxetine Other (see comment) Medium 03/24/2014 Makes pt. More depressed Sertraline Other (see comment) Medium 03/24/2014 Makes pt. More depressed Medications valACYclovir 500 MG tablet Take 500 mg by mouth 2 (two) times daily. Active ALPRAZOLAM 1 MG tabletIndication s:Anxiety TAKE 1/2 TO 1 TABLET BY MOUTH 3 TIMES A DAY NEEDED 30 tablet 12/18/2018 Active zolpidem CR 12.5 MG tablet Take 12.5 mg by mouth. 10/14/2020 Active valACYclovir 1 g tablet TAKE 1 TABLET BY MOUTH 3 TIMES A DAY FOR 7 DAYS 04/30/2020 Active DICLOFENAC EC 50 MG tabletIndication s:Lawrence's neuroma of left foot TAKE 1 TABLET BY MOUTH TWICE A DAY 60 tablet 06/22/2021 Active oxyCODONE immediate release 5 MG immediate release tabletIndication s:Acute Pain < 7 Day Supply Take 1 tablet (5 mg total) by mouth every 4 (four) hours as needed. 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 Rosacea 05/24/2016 Uterine leiomyoma 02/01/2015 Herpes labialis 10/11/2014 Anxiety 12/24/2013 Depression 12/24/2013 Insomnia 12/24/2013 Family History Medical History Relation Comments Heart Disease Father Hypertension Mother Stroke Mother Relation Status Comments Father Alive Maternal Grandfather Maternal Grandmother Mother Paternal Grandfather Paternal Grandmother Social History Tobacco Use Types Packs/Day Years Used Date Smoking Tobacco: Never Smokeless Tobacco: Never Tobacco Cessation:Counseling Given: No Comments:na Alcohol Use Standard Drinks/Week Comments Not Currently 0 (1 standard drink = 0.6 oz pur e alcohol) AUDIT-C Answer Date Recorded Frequency of Alcohol Consumption 2-4 times a sat06/25/2018 Average Number of Drinks 1 or 2 019 Frequency of Binge Drinking Never 02/2018 PHQ-2 Answer Date Recorded PHQ-2 Score - If the patient scores above 3, please move on to questions 3-9 0 08/22/2021 Education Answer Date Recorded What is the highest level of school you have completed or the highest degree you have received? 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 Legal Sex Female 4:36 PM CDT Gender Identity Female 05/01/2018 7:16 AM VAULT ATTENDANT Sexual Orientation Straight 05/01/2018 7: 16 AM VAULT ATTENDANT Last Filed Vital Signs Vital Sign Reading Time Taken Comments Blood Pressure 142/80 10/30/2023 2:04 AM CDT Pulse 70 10/30/2023 2:04 AM CDT Temperature 36.7 C (98 F) 10/30/2023 2:04 AM CDT Respiratory Rate 18 10/30/2023 2:04 AM CDT Oxygen Saturation 98% 10/30/2023 2:04 AM CDT Inhaled Oxygen Concentration - - Weight 61.2 kg (135 lb) 10/30/2023 12:15 AM CDT Height 167.6 cm (5' 6 ) 10/30/2023 12:15 AM CDT Body Mass Index 21.79 10/30/2023 12:15 AM CDT Plan of Treatment Health Maintenance Due Date Last Done Comments Cervical Cancer Screening Pa p Smear (Age 30 to 64) Every 3 Years 1964 Colorectal Cancer Screening Colonoscopy (10 Years) 1964 Annual Physical 02/10/1967 PHQ-2 (Physician Webster) 1976 Hepatitis C 02/10/1982 DTaP, Tdap and Td Vaccines ( 1 - Tdap) 02/10/1983 Cervical Cancer Screening Pa p with HPV Testing (Age 30 to 64) Every 5 Years 02/10/1994 Cervical Cancer Screening wi th HPV 02/10/1994 Zoster Vaccines (1 of 2) 02/10/2014 COVID-19 Vaccine (2023-2 5 season) 2023 Influenza Adult (#1) 2023 PHQ-2 (Physician Webster) 02/26/2024 Mammogram Screening 03/07/2025 03/07/2023, 05/06/2017 RSV Immunization or 60+ Years (1 - 1-dose 75+ series) 02/10/2039 Meningococcal B Vaccine Aged Out No l onger eligible based on patient's age to complete this topic Meningococcal Vaccine Aged Out No casi dasia eligible based on patient's age to complete this topic Pneumococcal Vaccine: Pediatrics (0 to 5 Years) and At-Risk Patients (6 to 64 Years) Aged Out No longer eligible b ased on patient's age to complete this topic RSV Immunizations Under 20 Months Aged Out No longer eligible b ased on patient's age to complete this topic Procedures Procedure Name Priority Date/Time Associated Diagnosis Comments MAMMOGRAM GENERIC (SCAN ORDER) 03/07/2023 from Last 3 Months or Most Recently Relevant to Health Maintenance Results * MAMMOGRAM GENERIC (SCAN ORDER) (03/07/2023) Anatomical Region Laterality Modality Other 03/07/2023 [facility] Scanned SCANNING Final Resu lt from Last 3 Months or Most Recently Relevant to Health Maintenance Insurance [employer] Advance Directives * Full Code (Latest Code Status on File) Date Activated Date Inactivated Comments 07/25/2021 9:48 AM 07/25/2021 3:55 PM Care Teams Production Engineer Relationship Specialty Start Date End Date Nir Gayle MD [address] [place] [address] PCP - General FAMILY PRACTICE 10/30/23
--- OUTSIDE RECORDS SUMMARY | 2024-04-17 15:35 | XMS_ITS | Clinical Summary ---
Author Organization [facility] Address [address] [place] [address] Care Team Providers Care Pediatric Dental Hygienist Name Role Phone Nir Gayle MD Primary Care Provider Source Comments [facility],non-owned Affiliates and Associated Physician Practices is amultiple site organization consisting of ambulatory clinics and hospital sitesin [place], [place], [place] and [place]. This disclosure is being madepursuant to the Care Everywhere program and may not contain all information available regarding this patient. Last updated 17.[facility] Allergies Active Allergy Reactions Criticality Noted Date [...] Active vitamin D, ergocalciferol, (DRISDOL) 1.25 MG (23365 UT) capsule TAKE 1 CAPSULE BY MOUTH [...] 10/11/2014 Anxiety 12/24/2013 Depression 12/24/2013 Insomnia 12/24/2013 Encounters Date Type Department Care Team Description 02/13/2024 Travel from Last 3 Months Family History Medical History Relation Name Comments Glaucoma Neg Hx Macular Degeneration Neg Hx Relation Name Status Comments Mother Lory (Age 77) cancer Social History Tobacco Use Types Packs/Day Years [...] Mass Index 21.56 09/23/2023 6:29 AM CDT Plan of Treatment Health Maintenance Due Date Last Done Comments ED (AGES 45-75) - COL ON CA SCREENING 1964 COLON MONITORING 1964 COLONOSCOPY - COLON CA SCREENING 1964 CT COLONOGRAPHY - COLON CA SCREENING 1964 Colorectal Cancer Screening 1964 FIT - COLON CA SCREENING 1964 FLEX SIG - COLON CA SCREENING 1964 PAP SMEAR 1964 HIV SCREENING 02/10/1979 HEPATITIS C SCREENING 02/06/1982 DTAP/TDAP/TD VACCINES (1 - Tdap) 02/10/1983 PNEUMOCOCCAL VACCINE 50+ (1 of 1 - PCV) 02/10/2014 ZOSTER VACCINE (1 of 2) 02/10/2014 COVID-19 VACCINE (1 - 2023-2 5 season) 2023 INFLUENZA VACCINE (#1) 2023 LIPID TESTING 01/05/2024 01/04/2019 DEPRESSION SCREENING 02/26/2024 MAMMOGRAM 03/07/2025 03/07/2023, 05/06/2017, 05/06/2017 Respiratory Syncytial Virus (RSV) Vaccine Pt: or over 60 yrs (1 - 1-dose 75+ series) 02/10/2039 HEPATITIS B VACCINE Aged Out No longe r eligible based on patient's age to complete this topic HIB VACCINE Aged Out No longer eligi ble based on patient's age to complete this topic HPV VACCINE Aged Out No longer eligi ble based on patient's age to complete this topic MENINGOCOCCAL (Group B) VACCINE Aged Out No longer eligible b ased on patient's age to complete this topic MENINGOCOCCAL VACCINE Aged Out No casi dasia eligible based on patient's age to complete this topic Procedures Procedure Name Priority Date/Time Associated Diagnosis Comments LIPID PROFILE Routine 01/04/2019 5:35 AM CLAIM TAKER from Last 3 Months or Most Recently Relevant to Health Maintenance Results * LIPID PROFILE (01/04/2019 5:35 AM CLAIM TAKER) Cholesterol 173 <200 mg/dL 01/04/2019 6:20 AM CLAIM TAKER [facility] Triglycerides 87 <150 mg/dL 01/04/2019 6:20 AM CLAIM TAKER [facility] HDL Cholesterol 57 >40 mg/dL 9 6:20 AM CLAIM TAKER [facility] Chol HDL Ratio 3.0 1.0 - 6.0 01/04/2019 6:20 AM [facility] LDL Calculated 99 65 - 130 mg/dL 01/04/2019 6:20 AM [facility] VLDL Calculated 17 10 - 40 mg/dL 01/04/2019 6:20 AM [facility] Blood BLOOD SPECIMEN / Unknown Lab Venipuncture / Unknown 01/04/2019 5:35 AM [facility] 01/04/2019 5:46 AM [facility] Narrative [facility] - 01/04/2019 6:20 AM [facility] Lipid Profile Comment: CHOLESTEROL LEVEL..................CLINICAL INTERPRETATION LESS [...] Manuel Galan MD LAB - CHEMISTRY LINSEY Alarcon Organization Address City/State/ZIP Co de Phone Number [facility] [address] from Last 3 Months or Most Recently Relevant to Health Maintenance Advance Directives * Full Code (Latest Code Status on File) Date Activated Date Inactivated Comments 01/01/2019 8:43 PM 01/06/2019 2:09 PM Care Teams Pediatric Dental Hygienist Relationship Specialty Start Date End Date Nir Gayle MD [address] [place] [address] PCP - General 08/19/19
--- OUTSIDE RECORDS SUMMARY | 2024-04-17 15:35 | XMS_ITS | Clinical Summary ---
Author Organization [facility] Address [address] [place] [id number] Care Team Providers Care Drum Printer Name Role Phone Nir Gayle MD Primary [...] 10/11/2014 Anxiety 12/24/2013 Depression 12/24/2013 Insomnia 12/24/2013 Surgical History Surgery Date Site/Laterality Comments BREAST SURGERY 1998 LAS2000 Medical History Medical History Date Comments Anxiety Arthritis 11/10/2023 Depression 05/28/2023 Hypertension 10/10/2023 Neuromuscular disorder (HCC) 05/28/23 Family History Medical History Relation Name Comments Early Father surgery Heart attack Father's Brother surgery Cancer Mother Lunf Cancer Mother's Sister 1 Breast Heart attack Mother's Sister 2 surgery Relation Name Status Comments Father surgery Father's Brother surgery Mother Lunf Mother's Sister 1 Breast Mother's Sister 2 surgery Social History Tobacco Use Types Packs/Day Years Used Date Smoking Tobacco: Never Cigarettes Smokeless Tobacco: Never Tobacco Cessation:Counseling Given: Not Answered Comments Unknown Sex and Gender Information Value Date Recorded Sex Assigned at Not on file 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 Gender Identity Not on file Sexual Orientation Not on file Obstetrics History Last Filed Vital Signs Vital Sign Reading [...] 11/08/2020 9:24 AM CDT Plan of Treatment Health Maintenance Due Date Last Done Comments Cervical Cancer Screening 1964 Colon Cancer Screening-Colonoscopy 1964 Depression Screening 1964 Hepatitis C Screening 1964 DTaP/Tdap/Td Vaccine (1 - Tdap) 02/10/1975 Hepatitis B Screening 02/10/1982 Regular Well Visit/Exam 18-64 02/10/1982 Zoster Vaccine (1 of 2) 02/10/2014 Breast Cancer Screening-Mammogram 05/06/2018 018 Influenza Vaccine (#1) 2023 Pneumococcal vaccine <65 Aged Out No longer eligible based on patient's age to complete this topic Insurance [facility] Care Teams Drum Printer Relationship Specialty Start Date End Date Nir Gayle MD PCP - General Family Medicine 10/18/20
== END 2024-04-17 15:31 | disposition home or self-care (01) ==
PROVIDERS: PCP Family Medicine; Visit Provider Physician Assistant
DX: J98.11 Atelectasis (principal)
CPT/HCPCS: 71046

== ENCOUNTER 2024-04-24 15:57 | Outpatient (CLI) | payer OTHER, SELFPAY ==
[2024-04-24 16:59] LABS: Influenza A QL RT-PCR Negative (Negative); Influenza B QL RT-PCR Negative (Negative); RSV RNA, RT-PCR Positive (Negative); SARS-CoV-2 RNA PCR Negative (Negative)
== END 2024-04-24 15:58 | disposition home or self-care (01) ==
LOC: ANHLAB 15:58
PROVIDERS: PCP Family Medicine; Visit Provider Physician Assistant
DX: R50.9 Fever, unspecified (principal)
CPT/HCPCS: 87637

== ENCOUNTER 2024-08-11 11:09 | Outpatient (CLI) | payer OTHER, SELFPAY ==
[2024-08-11 12:03] LABS: Basophils Percent Auto 0.7 % (0.2-1.2); Eosinophils Percent Auto 0.7 % (0-4.4); Hematocrit 42.3 % (37.0-47.0); Hemoglobin 13.7 g/dL (12.0-15.0); Immature Granulocyte Absolute 0.02 K/mm3 (0.00-0.031); Immature Granulocyte Percent A 0.4 % (0-0.5); Lymphocytes Absolute Auto 1.85 K/mm3 (0.9-3.2); Lymphocytes Percent Auto 32.9 % (18.3-44.2); Mean Corpuscular HGB Conc 32.4 g/dl (32-36); Mean Corpuscular Hemoglobin 28.7 pg (26-34); Mean Corpuscular Volume 88.5 fl (80-100); Mean Platelet Volume 9.7 fl (7.4-10.4); Monocytes Absolute Auto 0.3 K/mm3 (0.1-0.6); Neutrophils Absolute Auto 3.3 K/mm3 (1.3-6.7); Neutrophils Percent Auto 59.3 % (45.5-73.1); Platelet Count Result 334 k/mm3 (150-375); Red Blood Count 4.78 M/mm3 (4.2-5.4); Red Cell Distribution Width 12.2 % (11.5-14.5); White Blood Count 5.6 K/mm3 (4.5-10.0)
--- OUTSIDE RECORDS SUMMARY | 2024-08-11 12:18 | XMS_ITS | Referral Summary ---
Author Organization [facility] Address [facility] [place] [address] Care Team Providers Care Microstrategy Developer Name Role Phone Nir Gayle MD Primary Care Provider [phone] Encounters Date Type Department Care Team Description 08/11/2024 9:20 AM CDT Office Visit [facility] [address] [place] [address] Office [facility] [address] [place] [address] Stormy Mays MD Right lateral epicondylitis (Primary Dx); Myofascial pain; Cervicalgia 06/19/2024 3:40 PM CDT Ancillary Procedure [facility] [address] [place] [address] Office [facility] [address] [place] [address] 06/19/2024 3:30 PM CDT Procedure visit [facility] [address] [place] [address] Office [facility] [address] [place] [phone] Stormy Mays MD Chronic right shoulder pain; Calcific tendonitis of right shoulder; Myofascial pain 05/11/2024 Orders Only [facility] [address] [place] [address] Office [facility] [address] [place] [address] Stormy Mays MD Chronic right shoulder pain (Primary Dx); Calcific tendonitis of right shoulder; Myofascial pain from Last 3 Months Allergies Active Allergy [...] mg total) by mouth nightly 1 Active albuterol HFA (PROVENTIL HFA,VENTOLIN HFA,PROAIR HFA) 90 mcg/actuation inhaler INHALE 1-2 PUFFS BY MOUTH EVERY 4-6 HOURS NEEDED FOR SHORTNESS OF BREATH/WHEEZI NG 4 Active methocarbamoL (ROBAXIN) 750 mg tablet Take 1 tablet (750 mg total) by mouth nightly as needed 4 Active nortriptyline (PAMELOR) 25 mg capsule Take 1 capsule (25 mg total) by mouth 3 (three) times a day Active escitalopram (LEXAPRO) 10 mg tablet 1 08/12/19 25 Discontinu ed(Therapy completed) Active Problems Problem Noted Date Diagnosed Date [...] on file 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 Gender Identity Not on file Sexual Orientation Not on file Last Filed Vital Signs Vital Sign Reading Time Taken Comments Blood Pressure - - Pulse - - Temperature - - Respiratory Rate - - Oxygen Saturation - - Inhaled Oxygen Concentration - - Weight 62.6 kg (138 lb) 08/11/2024 9:15 AM CDT Height 167.6 cm (5' 6) 08/11/2024 9:15 AM CDT Body Mass Index 22.27 08/11/2024 9:15 AM CDT Plan of Treatment Not on file Procedures Procedure Name Priority Date/Time Associated Diagnosis Comments POCUS ASP/INJ INT JOINT Schedule Routine, Read Routine (OP Routine) 06/19/2024 3:39 PM CDT Chronic right shoulder pain Calcific tendonitis of right shoulder [place] INJECTION SINGLE/EYEGLASS INSPECTOR TRIGGER POINT 3/> MUSCLES Routine 06/19/2024 3:30 PM CDT Myofascial pain from Last 3 Months Results * POCUS ASP/INJ INT JOINT (06/19/2024 3:39 PM CDT) Narrative [facility] - 06/19/2024 3:39 PM CDT This procedure was performed and interpreted by the provider. Please refer to the provider's procedure/OR operative note for results. us Stormy Mays MD POCUS ORDERABLES Final Result [facility] * [place] INJECTION SINGLE/EYEGLASS INSPECTOR TRIGGER POINT 3/> MUSCLES (06/19/2024 3:30 PM CDT) Narrative Stormy Mays MD - 06/19/2024 3:30 PM CDT Stormy Mays MD 06/19/2024 4:25 PM Trigger Point Injection Performed by: Stormy Mays MD Authorized by: Stormy Mays MD Consent Given by: Patient Consent obtained:: Verbal Location: R levator scapulae, R upper trapezius and Other Other:: R posterior deltoid Ultrasound guidance: No Needle gauge: 27 G. Number of muscles: 3 or more Medications: 2 mL BUPivacaine HCl 0.25 % (2.5 mg/mL); 2 mL lidocaine 10 mg/mL (1 %) Patient tolerance: Patient tolerated the procedure well with no immediate complications us Stormy Mays MD IN CLINIC/BEDSIDE ORDERABLES Fi nal Result from Last 3 Months Insurance [facility] Care Teams Microstrategy Developer Relationship Specialty Start Date End Date Nir Gayle MD PCP - General Family Medicine 10/18/20
--- OUTSIDE RECORDS SUMMARY | 2024-08-11 12:18 | XMS_ITS | Clinical Summary ---
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 Rosacea 05/24/2016 Uterine leiomyoma 02/01/2015 Herpes labialis 10/11/2014 Anxiety 12/24/2013 Depression 12/24/2013 Insomnia 12/24/2013 Encounters Date Type Department Care Team Description 08/11/2024 9:20 AM CDT Office Visit [facility] Orthopaedic Surgery [address] [place] [address] Office [facility] [address] [place] [address] Stormy Mays MD Right lateral epicondylitis (Primary Dx); Myofascial pain; Cervicalgia 06/19/2024 3:40 PM CDT Ancillary Procedure [facility] Surgery [address] [place] [address] [address] [place] [address] 06/19/2024 3:30 PM CDT Procedure visit [facility] Surgery [address] [place] [address] [address] [place] [address] Stormy Mays MD Chronic right shoulder pain; Calcific tendonitis of right shoulder; Myofascial pain 05/11/2024 Orders Only [facility] [address] [place] [address] Office [facility] [address] [place] [address] Stormy Mays MD Chronic right shoulder pain (Primary Dx); Calcific tendonitis of right shoulder; Myofascial pain from Last 3 Months Surgical History Surgery Date Site/Laterality Comments BREAST SURGERY 1998 LASIK 2000 Medical History Medical History Date Comments Anxiety [...] on file 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 Gender Identity Not on file Sexual Orientation [...] 08/11/2024 9:15 AM CDT Plan of Treatment Health Maintenance Due Date Last Done Comments Cervical Cancer Screening 1964 Colon Cancer Screening-Colonoscopy 1964 Depression Screening 1964 Hepatitis C Screening 1964 DTaP/Tdap/Td Vaccine (1 - Tdap) 02/10/1975 Hepatitis B Screening 02/10/1982 Regular Well Visit/Exam 18-64 02/10/1982 Zoster Vaccine (1 of 2) 02/10/2014 Breast Cancer Screening-Mammogram 05/06/2018 018 Influenza Vaccine (Season Ended) 2024 Pneumococcal vaccine <65 Aged Out No longer eligible based on patient's age to complete this topic Procedures Procedure Name Priority Date/Time Associated Diagnosis Comments POCUS ASP/INJ INT JOINT Schedule Routine, Read Routine (OP Routine) 06/19/2024 3:39 PM CDT Chronic right shoulder pain Calcific tendonitis of right shoulder [place] INJECTION SINGLE/EXPLORATION MANAGER TRIGGER POINT 3/> MUSCLES Routine 06/19/2024 3:30 PM CDT Myofascial pain from Last 3 Months Results * POCUS ASP/INJ INT JOINT (06/19/2024 3:39 PM CDT) Narrative [facility] - 06/19/2024 3:39 PM CDT This procedure was performed and interpreted by the provider. Please refer to the provider's procedure/OR operative note for results. us Chi-Prosper Mays MD POCUS ORDERABLES Final Result [facility] * [place] INJECTION SINGLE/EXPLORATION MANAGER TRIGGER POINT 3/> MUSCLES (06/19/2024 3:30 PM [...] the procedure well with no immediate complications Stormy Mays MD IN CLINIC/BEDSIDE ORDERABLES Fi nal Result from Last 3 Months Insurance [facility] Care Teams Rig Builder Helper Relationship Specialty Start Date End Date Nir Gayle MD PCP - General Family Medicine 10/18/20
--- OUTSIDE RECORDS SUMMARY | 2024-08-11 12:19 | XMS_ITS | Clinical Summary ---
Author Organization [facility] [employer] Address [address] [facility] [place] [address] Care Team Providers Care Steam And Gas Turbines Assembler Name Role Phone Nir Gayle MD Primary Care Provider Source Comments [facility] [employer],non-owned Affiliates and Associated Physician Practices is amultiple site organization consisting of ambulatory clinics and hospital sitesin [place], [place], [place] and [place]. This disclosure is being madepursuant to the Care Everywhere program and may not contain all information available regarding this patient. Last updated 17.[facility] [employer] Allergies Active Allergy Reactions Criticality Noted Date Comments Dronabinol Diarrhea Low 05/01/2018 From intense inhalation Marijuana (Cannabis Sativa) Unknown,Diarrhea 05/01/2018 From intense inhalation From intense inhalation Paroxetine Unknown 03/24/2014 Sertraline Unknown 03/24/2014 SSRI reaction Medications * This document contains information received from the source organization and may not represent a complete record from that organization. * Be aware that medications may not be up to date on this document. Alwaysverify current medications with the patient. ALPRAZolam (XANAX) 1 MG tablet Take 1 (one) tablet by mouth once daily as needed FOR ANXIETY 08/06/2019 Active vitamin D, ergocalciferol, (DRISDOL) 1.25 MG (42334 UT) capsule TAKE 1 CAPSULE BY MOUTH ONE TIME PER WEEK 07/21/2019 Active zolpidem CR (AMBIEN CR) 12.5 MG tablet Take 1 (one) tablet by mouth at bedtime 10/14/2020 Active nortriptyline (Pamelor) 25 MG capsule Take 1 (one) capsule by mouth 07/11/2023 Active albuterol HFA (Proventil; Ventolin; Proair) 108 (90 Base) MCG/ACT inhaler Inhale 2 (two) puffs by mouth every 6 hours as needed Active fluticasone hfa 110 (Flovent HFA 110) 110 MCG/ACT inhaler Inhale 1 (one) puff by mouth 2 times daily 05/04/2024 Active Active Problems Problem Noted Date Diagnosed Date Brow ptosis, 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 Ptosis of both eyelids 08/30/2022 Dermatochalasis of both upper eyelids 08/30/2022 Acute psychosis 01/01/2019 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 Rosacea 05/24/2016 Uterine leiomyoma 02/01/2015 Herpes labialis 10/11/2014 Anxiety 12/24/2013 Depression 12/24/2013 Insomnia 12/24/2013 Encounters Date Type Department Care Team Description 05/21/2024 3:00 PM CDT Office Visit [facility] - Ophthalmology [address] [place] [id number] Leigh Cobb, DE ICER INSTALLER-RACK LOADER Dermatochalasis of both upper eyelids (Primary Dx); Brow ptosis, bilateral 05/21/2024 Travel from Last 3 Months Family History [...] oz pur e alcohol) 1 per month Comments No Sex and Gender Information Value Date Recorded Sex Assigned at Not on file Legal Sex Female 5:59 AM MOBILE SALES ASSISTANT Gender Identity Not on file Sexual Orientation [...] A M CDT Height 167.6 cm (5' 6) 09/23/2023 6:29 AM CDT Body Mass Index 21.56 09/23/2023 6:29 AM CDT Plan of Treatment Health Maintenance Due Date Last Done Comments COLOGUARD (AGES 45-75) - COL ON CA SCREENING 1964 COLON MONITORING 1964 COLONOSCOPY - COLON CA SCREENING 1964 CT COLONOGRAPHY - COLON CA SCREENING 1964 Colorectal Cancer Screening 1965 FIT - COLON CA SCREENING 1964 FLEX SIG - COLON CA SCREENING 1964 HIV SCREENING 02/10/1979 HEPATITIS C SCREENING 02/06/1982 DTAP/TDAP/TD VACCINES (1 - Tdap) 02/10/1983 PAP SMEAR 02/10/1985 PAP with HPV 02/10/1994 PNEUMOCOCCAL VACCINE 50+ (1 of 1 - PCV) 02/10/2014 ZOSTER VACCINE (1 of 2) 02/10/2014 COVID-19 VACCINE (1 - 2023-2 5 season) 2023 LIPID TESTING 01/05/2024 01/04/2019 DEPRESSION SCREENING 02/26/2024 INFLUENZA VACCINE (Season Ended) 2024 MAMMOGRAM 03/07/2025 03/07/2023, 05/06/2017, 05/06/2017 Respiratory Syncytial [...] complete this topic MENINGOCOCCAL (Group B) VACCINE SHARED DECISION-MAKING Aged Out No longer eligible based on patient's age to complete this topic MENINGOCOCCAL GROUPS A/C/Y/W VACCINE Aged Out No longer eligible b ased on patient's age to complete this topic Procedures Procedure Name Priority Date/Time Associated Diagnosis Comments LIPID PROFILE Routine 01/04/2019 5:35 AM MOBILE SALES ASSISTANT from Last 3 Months or Most Recently Relevant to Health Maintenance Results * LIPID PROFILE (01/04/2019 5:35 AM [facility]) Cholesterol 173 <200 mg/dL 01/04/2019 6:20 AM [facility] Triglycerides 87 <150 mg/dL 01/04/2019 6:20 AM [facility] HDL Cholesterol 57 >40 mg/dL 9 6:20 AM [facility] Chol HDL Ratio 3.0 1.0 - 6.0 01/04/2019 6:20 AM [facility] LDL Calculated 99 65 - 130 mg/dL 01/04/2019 6:20 AM [facility] VLDL Calculated 17 10 - 40 mg/dL 01/04/2019 6:20 AM [facility] Blood BLOOD SPECIMEN / Unknown Lab Venipuncture / Unknown 01/04/2019 5:35 AM [facility] 01/04/2019 5:46 AM [facility] Narrative [facility] - 01/04/2019 6:20 AM [facility] Lipid Profile Comment: CHOLESTEROL LEVEL..................CLINICAL INTERPRETATION LESS [...] 2X AVERAGE.................. 9.5 ...................... 7.0 3X AVERAGE...................>23........................>11 us Victor Manuel Galan MD LAB - CHEMISTRY ORDERABLES nal Result Performing Organization Address City/State/[facility] Co de Phone Number [facility] [address] from Last 3 Months or Most Recently Relevant to Health Maintenance Insurance [facility] Advance Directives * Full Code (Latest Code Status on File) Date Activated Date Inactivated Comments 01/01/2019 8:43 PM 01/06/2019 2:09 PM Care Teams Steam And Gas Turbines Assembler Relationship Specialty Start Date End Date Nir Gayle MD [address] [place] [address] PCP - General 08/19/19
--- OUTSIDE RECORDS SUMMARY | 2024-08-11 12:19 | XMS_ITS | Encounter Summary ---
Author Organization [facility] Address [address] [place] [address] Phone Care Team Providers Care Customer Services Manager Name Role Phone Nir Gayle MD Primary Care Provider [phone] Reason for Referral * Consultation (Routine) - Pending Review Specialty Diagnoses / Procedures Referred By Contac t Referred To Contact Physical Therapy Diagnoses Right lateral epicondylitis [place]ofascial [place] [address] [place] [address] Phone: tel: fax: External Order Referral ID Status Reason Start Date Expiration Date Visits Requested Visits Authorized [id number] Pending Review Evaluate and Treat 08/11/2024 09/10/2025 24 24 Question Answer PTRFR PT Evaluate and Treat Reason for Visit R lateral epicondylosis, cervicalgia, myofascial pain Therapy options discussed with patient? Yes Location provided for therapy services is: Patient requested/Patient preferred Please select the performing region: External Order [[id number]] # of visits: 24 Comments R scapular depression and anterior tilt. Work on soft tissue release and dry needling to R forearm extensors, deltoid (lateral and posterior), pectoralis, biceps. Encounter Details Date Type Department Care Team (Latest Contact Info) Description 08/11/2024 9:20 AM CDT Office Visit [facility] Orthopaedic Surgery [facility] Medical Office Building [address] [place] [address] [place] [address] [place] [address] Right lateral epicondylitis (Primary Dx); Myofascial pain; Cervicalgia Social History Tobacco Use Types Packs/Day Years Used Date Smoking Tobacco: Never Cigarettes Smokeless Tobacco: Never Comments Unknown Sex and Gender Information Value Date Recorded Sex Assigned at Not on file Legal Sex Female 1:36 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 Gender Identity Not on file Sexual Orientation Not on file documented as of this encounter Last Filed Vital Signs Vital Sign Reading Time Taken Comments Blood Pressure - - Pulse - - Temperature - - Respiratory Rate - - Oxygen Saturation - - Inhaled Oxygen Concentration - - Weight 62.6 kg (138 lb) 08/11/2024 9:15 AM CDT Height 167.6 cm (5' 6) 08/11/2024 9:15 AM CDT Body Mass Index 22.27 08/11/2024 9:15 AM CDT documented in this encounter Plan of Treatment Scheduled Referrals Name Type Priority Associated Diagnoses Order Schedule Ambulatory referral order to Physical Therapy - Outpatient Referral Routine Right lateral epicondylitis Myofascial pain Cervicalgia Expected: 08/11/2024 (Approximate), Expires: 08/11/2025 documented as of this encounter Visit Diagnoses Diagnosis Right lateral epicondylitis- Primary Myofascial pain Unspecified myalgia and myositis Cervicalgia documented in this encounter Discontinued Medications Medication Sig Discontinue Reason Start Date End Da te escitalopram (LEXAPRO) 10 mg tablet Therapy completed 11/14/2020 08/11/2024 documented as of this encounter Care Teams Customer Services Manager Relationship Specialty Start Date End Date Nir Gayle MD PCP - General Family Medicine 10/18/20 documented as of this encounter
[2024-08-11 12:35] LABS: Hemoglobin A1C 5.6 % (<5.7)
[2024-08-11 12:36] LABS: Alanine Aminotransferase 13 U/L (6-35); Albumin Level 4.4 g/dL (3.5-5.1); Alkaline Phosphatase 70 U/L (38-126); Anion Gap 8 mmol/L (4-12); Aspartate Amino Transferase 23 U/L (14-36); Bilirubin,Total 0.9 mg/dL (0.2-1.3); Blood Urea Nitrogen 14 mg/dL (7-17); Calcium 9.8 mg/dL (8.4-10.2); Carbon Dioxide 27 mmol/L (22-30); Chloride 103 mmol/L (98-107); Estimated Glomerular Filt Rate > 60; Glucose 108 mg/dL (65-110); Potassium 4.1 mmol/L (3.4-5.0); Sodium 138 mmol/L (137-145); Total Protein 7.6 g/dL (6.3-8.2)
[2024-08-11 12:55] LABS: Free T4 Free Thyroxine 0.83 ng/dL (0.78-2.19)
[2024-08-11 13:24] LABS: Hepatitis C Virus Antibody Negative (Negative)
[2024-08-11 13:39] LABS: Folic Acid 12.1 ng/mL (2.76->20)
[2024-08-11 14:40] LABS: Total Triiodothyronine (T3) 1.23 NG/ML (0.82-1.58)
[2024-08-13 12:19] LABS: Vitamin B6 12.9 ng/mL (2.1-21.7)
[2024-08-13 15:18] LABS: Vitamin B1 7 nmol/L (8-30)
[2024-08-13 19:33] LABS: Alpha-Tocopherol 10.9 mg/L (5.7-19.9); Beta-Gamma Tocopherol 1.5 mg/L (<4.4)
[2024-08-15 14:57] LABS: Vitamin B2 5.1 nmol/L (6.2-39.0)
== END 2024-08-11 11:10 | disposition home or self-care (01) ==
LOC: ANHLAB 11:13
PROVIDERS: PCP Family Medicine; Visit Provider Registered Nurse
DX: E78.5 Hyperlipidemia, unspecified (principal); Z11.59 Encounter for screening for other viral diseases; R73.01 Impaired fasting glucose; R53.83 Other fatigue
CPT/HCPCS: 36415; 80053; 82607; 82746; 83036; 84207; 84252; 84425; 84439; 84443; 84446; 84480; 85025; 86803

== ENCOUNTER 2025-01-22 12:25 | Outpatient (CLI) | payer OTHER, SELFPAY ==
--- OUTSIDE RECORDS SUMMARY | 2025-01-22 12:29 | XMS_ITS | Encounter Summary ---
Author Organization [facility] Address [facility] access hospital[address] [place] [address] Care Team Providers Care Computer Lab Para Professional Name Role Phone Nir Gayle MD Primary Care Provider [phone] Osmany Montes NP Primary Care Provide r Renny Urbina MD Primary Care Provider [phone] Nir Gayle MD Primary Care Provider [phone] Encounter Details Date Type Department Care Team (Late st Contact Info) Description 07/20/2021 Prep for Procedure [facility] [address] [place] [address] Abdulkadir Damon, DPM [address] [place] [phone] Social History Tobacco Use Types Packs/Day [...] Sex Assigned at Female 05/01/2018 7:16 AM BRICKLAYER SUPERVISOR Legal Sex Female 4:36 PM CDT Gender Identity Female 05/01/2018 7:16 AM BRICKLAYER SUPERVISOR Sexual Orientation Straight 05/01/2018 7: 16 AM BRICKLAYER SUPERVISOR COVID-19 Exposure Response Date Recorded In [...] CDT) SPECIMEN SOURCE NASAL 11:51 AM CDT [facility] CORONAVIRUS SARS COV 2 PCR (RESP) NEGATIVE NEGATIVE 07/23/2021 10:39 AM CDT [facility] Comment: THE SARS-CoV-2 TEST HAS BEEN AUTHORIZED BY THE FDA UNDER AN EUA FOR USE BY AUTHORIZED LABORATORIES. PERFORMED BY NUCLEIC ACID AMPLIFICATION PCR FIRST TEST NO 07/22/2021 11:51 AM CDT [facility] EMPLOYED IN HEALTHCARE NO 07/22/2021 11:51 AM CDT [facility] SYMPTOMATIC DEFINED BY CDC NO 07/22/2021 11:51 AM CDT [facility] HOSPITALIZATION STATUS NO 07/22/2021 11:51 AM CDT [facility] PATIENT IN ICU NO 07/22/2021 11:51 AM CDT [facility] RESIDENT OF REPLACED BY [facility] NO 07/22/2021 11:51 AM CDT [facility] NASAL STRUCTURE / Unknown 07/22/2021 11:53 AM CDT Abdulkadir Damon DPM MICROBIOLOGY - GENERAL ORDERABLE S Final Result [facility] (H) [facility] [address] [place] [address], [place] [phone] [facility] (D) [facility] [address] [place] [address], documented in this encounter Visit Diagnoses Diagnosis Pre-op testing- Primary Preoperative examination, unspecified documented in this encounter Additional Health Concerns Infection Onset Date Last Indicated Resolved Time COVID-19 Rule Out 07/22/2021 07/22/2021 07/23/2021 10:40 AM CDT COVID-19 Rule Out 12/21/2021 12/21/2021 12/21/2021 10:21 AM CDT COVID-19 Confirmed 12/21/2021 12/21/2021 12:32 AM BRICKLAYER SUPERVISOR documented as of this encounter Care Teams Computer Lab Para Professional Relationship Specialty Start Date End Date Nir Gayle MD [address] [place] [address] PCP - General FAMILY PRACTICE 06/19/21 03/18/23 Osmany Montes NP [address] [place] [address] PCP - General NURSE PRACTITIONER ADULT HEALTH 03/19/23 09/12/23 [place] [address] [place] [address] PCP - General INTERNAL MEDICINE 09/13/23 10/29/23 Nir Gayle MD [address] [place] [address] PCP - General FAMILY PRACTICE 10/30/23 documented as of this encounter
--- OUTSIDE RECORDS SUMMARY | 2025-01-22 12:30 | XMS_ITS | Clinical Summary ---
Author Organization [facility] Address [address] [place] [phone] Care Team Providers Care Air Cargo Ground Operations Supervisor Name Role Phone Nir Gayle MD [...] mouth 3 (three) times a day Active budesonide-form oteroL (SYMBICORT) 160-4.5 mcg/actuation inhaler Inhale 2 puffs Active Active Problems Problem Noted Date Diagnosed [...] 11/10/2023 Depression 05/28/2023 Hypertension 10/10/2023 Neuromuscular disorder 05/28/23 Family History Medical History Relation Name [...] on file Legal Sex Female 1:36 AM CONTRACTS ADVISOR Gender Identity Not on file Sexual Orientation [...] Cancer Screening-Mammogram 05/06/2018 018 Influenza Vaccine (#1) 2024 Pneumococcal vaccine <65 Aged Out No longer eligible based on patient's age to complete this topic Insurance [facility] Care Teams Air Cargo Ground Operations Supervisor Relationship Specialty Start Date End Date Nir Gayle MD PCP - General Family Medicine 10/18/20
--- OUTSIDE RECORDS SUMMARY | 2025-01-22 12:30 | XMS_ITS | Clinical Summary ---
Author Organization [facility] Address [address] [place] [address] Care Team Providers Care Magnetic Observer Name Role Phone Nir Gayle MD Primary Care Provider [phone] Source Comments [facility],non-owned Affiliates and Associated Physician Practices is amultiple site organization consisting of ambulatory clinics and hospital sitesin [place], [place], [place] and [place]. This disclosure is being madepursuant to the Care Everywhere program and may not contain all information available regarding this patient. Last updated 17.[facility] Allergies Active Allergy Reactions Criticality Noted Date [...] be up to date on this document. Always verify current medications with the patient. ALPRAZolam (XANAX) 1 MG tablet Take 1 (one) tablet by mouth once daily as needed FOR ANXIETY 08/06/2019 Active vitamin D, ergocalciferol, (DRISDOL) 1.25 MG (23978 UT) capsule TAKE 1 CAPSULE BY MOUTH [...] Insomnia 12/24/2013 Family History Medical History Relation Name Comments [...] on file Legal Sex Female 5:59 AM EXTENSION WORK DIRECTOR Gender Identity Not on file Sexual Orientation [...] 02/06/1982 DTAP/TDAP/TD VACCINES (1 - Tdap) 02/10/1983 Cervical Cancer Screening 02/10/1985 PAP SMEAR 02/10/1985 PAP with HPV 02/10/1994 PNEUMOCOCCAL VACCINE 50+ (1 of 1 - PCV) 02/10/2014 ZOSTER VACCINE (1 of 2) 02/10/2014 LIPID TESTING 01/05/2024 01/04/2019 DEPRESSION SCREENING 02/26/2024 COVID-19 VACCINE (1 - 2024-2 6 season) 2024 INFLUENZA VACCINE (#1) 2024 MAMMOGRAM 03/07/2025 03/07/2023, 05/06/2017, 05/06/2017 Respiratory [...] Comments LIPID PROFILE Routine 01/04/2019 5:35 AM EXTENSION WORK DIRECTOR from Last 3 Months or Most Recently Relevant to Health Maintenance Results * LIPID PROFILE (01/04/2019 5:35 AM EXTENSION WORK DIRECTOR) Pathologist [facility] Cholesterol 173 <200 mg/dL 01/04/2019 6:20 AM EXTENSION WORK DIRECTOR [facility] Triglycerides 87 <150 mg/dL 01/04/2019 6:20 AM EXTENSION WORK DIRECTOR [facility] HDL Cholesterol 57 >40 mg/dL 9 6:20 AM [facility] Chol HDL Ratio 3.0 1.0 - 6.0 01/04/2019 6:20 AM [facility] LDL Calculated 99 65 - 130 mg/dL 01/04/2019 6:20 AM [facility] VLDL Calculated 17 10 - 40 mg/dL 01/04/2019 6:20 AM [facility] Blood BLOOD SPECIMEN / Unknown Lab Venipuncture / Unknown 01/04/2019 5:35 AM [facility] 01/04/2019 5:46 AM [facility] - 01/04/2019 6:20 AM [facility] Lipid Profile Comment: CHOLESTEROL LEVEL..................CLINICAL INTERPRETATION LESS [...] Manuel Galan MD LAB - CHEMISTRY ORDERABLES Critical access hospital Result [facility] [address] [place] [address], [place] from Last 3 Months or Most Recently Relevant to Health Maintenance Insurance [facility] Advance Directives * Full Code (Latest Code Status on File) Date Activated Date Inactivated Comments 01/01/2019 8:43 PM 01/06/2019 2:09 PM Care Teams Magnetic Observer Relationship Specialty Start Date End Date Nir Gayle MD [address] [place] [address] PCP - General 08/19/19
--- OUTSIDE RECORDS SUMMARY | 2025-01-22 12:30 | XMS_ITS | Clinical Summary ---
Author Organization [facility] Address [facility] [place] [address] Care Team Providers Care Dispatcher Refinery Name Role Phone Nir Gayle MD Primary Care Provider [phone] Allergies Active Allergy Reactions Criticality Noted Date [...] Active Problems Problem Noted Date Diagnosed Date Urinary incontinence 07/16/2024 Strain of upper arm, right 11/04/2023 Chronic [...] Sex Assigned at Female 05/01/2018 7:16 AM SHUTTLE BUGGY OPERATOR Legal Sex Female 4:36 PM CDT Gender Identity Female 05/01/2018 7:16 AM SHUTTLE BUGGY OPERATOR Sexual Orientation Straight 05/01/2018 7: 16 AM SHUTTLE BUGGY OPERATOR Last Filed Vital Signs Vital Sign Reading [...] 12:15 AM CDT Height 167.6 cm (5' 6) 10/30/2023 12:15 AM CDT Body Mass Index 21.79 10/30/2023 12:15 AM CDT Plan of Treatment Health Maintenance Due Date Last Done Comments Cervical Cancer Screening Pa p Smear (Age 30 to 64) Every 3 Years 1964 Colorectal Cancer Screening Colonoscopy (10 Years) 1964 Annual Physical 02/10/1967 Hepatitis C 02/10/1982 DTaP, Tdap and Td Vaccines ( 1 - Tdap) 02/10/1983 Cervical Cancer Screening Pa p with HPV Testing (Age 30 to 64) Every 5 Years 02/10/1994 Cervical Cancer Screening wi th HPV 02/10/1994 Pneumococcal Vaccine: 50+ Years (1 of 1 - PCV) 02/10/2014 Zoster Vaccines (1 of 2) 02/10/2014 PHQ-2 (Physician Drexel) 02/26/2024 COVID-19 Vaccine (1 - 2024-2 6 season) 2024 Influenza Adult (#1) 2024 Mammogram Screening 03/07/2025 03/07/2023, 05/06/2017 RSV Immunization or 60+ Years (1 - 1-dose 75+ series) 02/10/2039 Hepatitis A Vaccines Aged Out No long er eligible based on patient's age to complete this topic Meningococcal B Vaccine Aged Out No l [...] Most Recently Relevant to Health Maintenance Insurance [place] [employer] Advance Directives * Full Code (Latest Code Status on File) Date Activated Date Inactivated Comments 07/25/2021 9:48 AM 07/25/2021 3:55 PM Care Teams Dispatcher Refinery Relationship Specialty Start Date End Date Nir Gayle MD [address] [place] [address] PCP - General FAMILY PRACTICE 10/30/23
[2025-01-22 13:09] LABS: Hematocrit 42.3 % (37.0-47.0); Hemoglobin 14.1 g/dL (12.0-15.0); Immature Granulocyte Percent A 0.4 % (0-0.5); Lymphocytes Absolute Auto 2.87 K/mm3 (0.9-3.2); Mean Corpuscular HGB Conc 33.3 g/dl (32-36); Mean Corpuscular Hemoglobin 29.3 pg (26-34); Mean Corpuscular Volume 87.9 fl (80-100); Nucleated Red Blood Cells Absolute Auto 0.000 K/mm3 (0.0-0.012); Nucleated Red Blood Cells Perc 0.0 % (0.0-0.2); Platelet Count Result 379 k/mm3 (150-375); Red Blood Count 4.81 M/mm3 (4.2-5.4); White Blood Count 7.1 K/mm3 (4.5-10.0)
[2025-01-22 13:24] LABS: Alanine Aminotransferase 15 U/L (6-35); Albumin Level 4.4 g/dL (3.5-5.1); Alkaline Phosphatase 65 U/L (38-126); Anion Gap 8 mmol/L (4-12); Aspartate Amino Transferase 22 U/L (14-36); Bilirubin,Total 1.1 mg/dL (0.2-1.3); Blood Urea Nitrogen 11 mg/dL (7-17); Calcium 9.2 mg/dL (8.4-10.2); Carbon Dioxide 28 mmol/L (22-30); Chloride 102 mmol/L (98-107); Cholesterol 224 mg/dL (0-200); Estimated Glomerular Filt Rate > 60; Glucose 83 mg/dL (65-110); HDL Direct 46 mg/dL; Potassium 3.5 mmol/L (3.4-5.0); Sodium 138 mmol/L (137-145); Total Protein 7.6 g/dL (6.3-8.2); Triglycerides 221 mg/dL (<150)
[2025-01-22 13:58] LABS: Hemoglobin A1C 5.7 % (<5.7)
[2025-01-22 14:00] LABS: Thyroid Stimulating Hormone 3.530 uIU/mL (0.465-4.680)
[2025-01-22 14:19] LABS: Vitamin B12 834.0 pg/mL (239-931)
== END 2025-01-22 12:26 | disposition home or self-care (01) ==
LOC: ANHLAB 12:28
PROVIDERS: PCP Family Medicine; Visit Provider Nurse Practitioner Family
DX: E78.5 Hyperlipidemia, unspecified (principal); R73.03 Prediabetes; K76.89 Other specified diseases of liver; E55.9 Vitamin D deficiency, unspecified; E53.9 Vitamin B deficiency, unspecified
CPT/HCPCS: 36415; 80053; 80061; 82306; 82607; 83036; 84443; 85025; 86803